=== PATIENT | female | born 1980 | race Caucasian/White ===

== ENCOUNTER 2018-12-20 14:46 | Emergency (ER) | payer OTHER ==
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
--- NOTE | 2018-12-20 17:32 | CR ---
Chest: Portable view of the chest was obtained. Comparison: No prior chest x-ray. Heart size and mediastinum are normal. Lungs are clear. Scoliosis is present within the spine. No discrete acute bony abnormality is appreciated. Impression: 1. Nothing acute is seen on portable chest x-ray. Diagnostic code #2
== END 2018-12-20 17:29 | disposition home or self-care (01) ==
LOC: JD.ED 14:46
DX: R07.81 Pleurodynia (principal)
CPT/HCPCS: 71045; 71045-26; 99283; 99284-25